=== PATIENT | male | born 1950 | race American Indian/Alaskan Native ===

== ENCOUNTER 2019-01-08 10:59 | Day surgery (SDC) | payer MEDICARE ==
--- NOTE | 2019-01-08 12:20 | Anesthesia Consultation ---
Anesthesia Consult and Med Hx Date of service: 01/08/19 - Airway Anesthetic Teeth Evaluation: Good ROM Head & Neck: Adequate Mental/Hyoid Distance: Adequate Mallampati Class: Class III Intubation Access Assessment: Possibly Difficult - Pulmonary Exam CTA: Yes - Cardiac Exam Cardiac Exam: RRR - Pre-Operative Health Status ASA Pre-Surgery Classification: ASA2 Proposed Anesthetic Plan: General - Pulmonary Hx Smoking: No Hx Respiratory Symptoms: No Hx Sleep Apnea: Yes (DX SLEEP APNEA- NO CPAP (HAD UPP SURGERY)) - Cardiovascular System Hx Hypertension: Yes (took amlodipine and losartan today) Hx Heart Attack/AMI: No - Central Nervous System CVA: No - Gastrointestinal Hx Gastroesophageal Reflux Disease: No - Endocrine Hx Renal Disease: No Hx Non-Insulin Dependent Diabetes: Yes (diet controlled) - Other Systems Hx Obesity: No - Additional Comments Anesthesia Medical History Comments: No hx anesthetic complications.
--- NOTE | 2019-01-08 12:21 | Anesthesia Day of Surgery ---
Anesthesia Day of Surgery - Day of Surgery Patient Examined: Yes Patient H&P Reviewed: Yes Patient is NPO: Yes
[2019-01-08] MEDS ORDERED: VERSED IV NR (13:00)
[2019-01-08] MEDS ORDERED: ANCEF/STERILE WATER 2 GM/20 ML IV NR (13:00)
[2019-01-08] MEDS ORDERED: LACTATED RINGERS 1,000 ML IV SCH (13:00)
[2019-01-08] MEDS ORDERED: SUBLIMAZE ONE ×2 (13:50→15:04)
[2019-01-08] MEDS ORDERED: DIPRIVAN 10 MG/ML IV ONE (13:51)
[2019-01-08] MEDS ORDERED: NACL 0.9% 1000 ML 1,000 ML ONE ×2 (14:35→15:22)
[2019-01-08] MEDS ORDERED: NACL 0.9% IR ONE (15:06)
[2019-01-08] MEDS ORDERED: WATER FOR IRRIG STERILE IR ONE (15:06)
[2019-01-08] MEDS ORDERED: ZOFRAN ONE (16:21)
[2019-01-08] MEDS ORDERED: LASIX ONE ×2 (16:21→18:07)
--- NOTE | 2019-01-08 16:44 | Post Operative Note ---
Date of procedure: 01/08/19 Pre-op diagnosis: cap Post-op diagnosis: same Findings: no evidence extension Procedure: cystp cryo Anesthesia: GETDarius Surgeon: RADHA HSIEH Estimated blood loss: minimal Pathology: none Condition: stable Disposition: PACU
--- NOTE | 2019-01-08 16:46 | Discharge Summary ---
Short Stay Discharge Plan Activity: other (no straining ) Weight Bearing Status: Full Weight Bearing Diet: low fat, low cholesterol, low salt Wound: other (ice in RR and x 24 hrs ) Special Instructions: other (ice butler) Durable Medical Equipment Needed Upon Discharge: other (teach butler care) Follow up with: JARAD MCNEIL MD [Primary Care Provider] - 7 Days RADHA HSIEH MD [Staff Physician] - 7 Days
[2019-01-08] MEDS: SUBLIMAZE IV PRN ×2 (17:02→18:10)
--- NOTE | 2019-01-08 17:39 | Operative Report ---
PREOPERATIVE DIAGNOSIS: Prostate cancer, extensive. POSTOPERATIVE DIAGNOSIS: Prostate cancer, extensive. PROCEDURE: Cryosurgical ablation of prostate, cystoscopy. SURGEON: Chadwick Castillo MD ANESTHESIA: General. FINDINGS: This is a gentleman with extensive prostate cancer. We offered him radical surgery, which he refused and radiation therapy, which he refused. He wanted cryosurgical ablation. He understands this may have to be repeated. He may need radiation at a later date. He has agreed to it. DESCRIPTION OF PROCEDURE: The patient brought to the operating room and placed on the operating table. Following induction of anesthesia, placed in lithotomy position, prepped and draped in usual sterile fashion. Griffin catheter was inserted. The scrotum was elevated and the ultrasound probe was placed. The gland once again measured about 26 grams. Excellent visualization was achieved. Probes 1 and 2 were placed. Then, ____ temperature probe and external sphincter were easily placed as well. Probes 5 and 6 and then 3 and 4 were placed, excellent position seen in both the transverse image and sagittal. Griffin catheter was in good position and at this point, flexible cystoscopy showed no injury to the urethra or bladder. A wire coiled in the bladder. This was an Amplatz stiff and the warmer easily went under ultrasound guidance into the bladder. This was secured with a Alvina. We rechecked the probe multiple times and made sure that the length was no more than 4 cm and adjusted it little shorter as we were more anterior to the gland. We then had the first freeze 1 and 2, started at about 50-75 and then came down to 3 and 4 and then 5 and 6. [place]illi[place] was protected. We watched the temperature and the ice ball formed well. The patient tolerated the procedure well. It was totally thawed. A second freeze was carried out. The second thaw was carried out. There was 1 probe area that was oozing, so we placed this one suture of 3-0 chromic. The patient tolerated the procedure well. No significant complications. The 18-coude was placed, brought to recovery room. Friend notified. His urine was clear and brought to recovery in stable condition. JOB# [id number] GLORY/SUMAYA
[2019-01-08 18:31] VITALS: BP 121/84
[2019-01-08] MEDS ORDERED: LASIX IV SCH (19:00)
== END 2019-01-08 11:00 | disposition home or self-care (01) ==
LOC: OR 10:59
PROVIDERS: ATTEND Urology
DX: C61 Malignant neoplasm of prostate (principal); E78.00 Pure hypercholesterolemia, unspecified; I10 Essential (primary) hypertension; G47.30 Sleep apnea, unspecified; M19.90 Unspecified osteoarthritis, unspecified site; E11.9 Type 2 diabetes mellitus without complications; Z79.899 Other long term (current) drug therapy
CPT/HCPCS: 55873; 82962; C2618; J0690; J1940; J2250; J2405; J2704; J3010; J7030; J7120

== ENCOUNTER 2019-01-15 21:30 | Emergency (ER) | payer MEDICARE ==
--- NOTE | 2019-01-15 22:25 | Emergency Department Report ---
Blank Doc - Documentation Documentation: This is a 68-year-old male that presents with unable to urinate. Stated has had a butler cath that was removed due to prostate cancer and now he can now void. This initial assessment/diagnostic orders/clinical plan/treatment(s) is/are subject to change based on patient's health status, clinical progression and re- assessment by fellow clinical providers in the ED. Further treatment and workup at subsequent clinical providers discretion. Patient/guardians urged not to ozzy pe from the ED as their condition may be serious if not clinically assessed and managed. Initial orders include: 1- Patient sent to MAIN ED for further evaluation and treatment 2- labs 3- butler ordered 4- UA
[2019-01-15 22:59] LABS: Basophils # (Auto) 0.1 K/mm3 (0.0-0.1); Basophils % (Auto) 0.9 % (0.0-1.8); Eosinophils # (Auto) 0.1 K/mm3 (0.0-0.4); Eosinophils % (Auto) 0.6 % (0.0-4.3); Hematocrit 40.3 % (35.5-45.6); Hemoglobin 13.4 gm/dl (11.8-15.2); Lymphocytes # (Auto) 2.1 K/mm3 (1.2-5.4); Lymphocytes % (Auto) 23.3 % (13.4-35.0); Mean Corpuscular HGB Conc 33 % (32-34); Mean Corpuscular Volume 87 fl (84-94); Monocytes # (Auto) 0.6 K/mm3 (0.0-0.8); Monocytes % (Auto) 6.5 % (0.0-7.3); Platelet Count 314 K/mm3 (140-440); Red Blood Count 4.63 M/mm3 (3.65-5.03); Red Cell Distribution Width 13.9 % (13.2-15.2)
[2019-01-15 23:09] VITALS: BP 140/83
[2019-01-15 23:12] LABS: BUN/Creatinine Ratio 15; Blood Urea Nitrogen 21 mg/dL (9-20); Calcium 10.1 mg/dL (8.4-10.2); Hemolysis Index 42
--- NOTE | 2019-01-15 23:20 | Emergency Department Report ---
HPI - General Chief Complaint: Abdominal Pain Time Seen by Provider: 01/15/19 22:23 - HPI HPI: 68-year-old -Spanish male presents to the emergency department with complaint of severe lower abdominal/suprapubic pain along with urinary retention. The patient has a history of prostate cancer and had some cryotherapy done one week ago with Dr. Castillo. He had a Griffin catheter in place secondary to this urinary retention but had it removed in the office this morning. The patient says that he was able to urinate on his own for a few hours but then once again became unable to urinate and the pain and retention got progressively worse. He denies any fever, nausea, vomiting. He did not take anything for her symptoms prior to arrival. ED Past Medical Hx - Past Medical History Previous Medical History?: Yes Hx Hypertension: Yes (took amlodipine and losartan today) Hx Heart Attack/AMI: No Hx Diabetes: Yes (" PRE-DIABETIC" -NO MEDS) Hx Renal Disease: No Hx of Cancer: Yes (Prostate) Hx Arthritis: Yes Hx HIV: No - Surgical History Past Surgical History?: No - Social History Smoking Status: Never Smoker Substance Use Type: None - Medications Home Medications: Home Medications Medication Instructions Recorded Confirmed Last Taken Type Atorvastatin Calcium 40 mg PO HS 01/08/19 01/08/19 01/07/19 21:55 History Losartan Potassium 100 mg PO DAILY 01/08/19 01/08/19 01/08/19 06:30 History amLODIPine [Norvasc] 10 mg PO DAILY 01/08/19 01/08/19 01/07/19 06:30 History ED Review of Systems ROS: Stated complaint: BLADDER PAIN Other details as noted in HPI Comment: All other systems reviewed and negative Constitutional: denies: chills, fever Eyes: denies: eye pain, vision change ENT: denies: ear pain, throat pain Respiratory: denies: cough, shortness of breath Cardiovascular: denies: chest pain, palpitations Gastrointestinal: abdominal pain. denies: vomiting Genitourinary: dysuria. denies: discharge Musculoskeletal: denies: back pain, arthralgia Skin: denies: rash, lesions Neurological: denies: headache, weakness Physical Exam - Physical Exam Vital Signs: Vital Signs 01/15/19 01/15/19 01/15/19 22:24 22:45 23:01 Temperature 98.3 F Pulse Rate 79 93 H 65 Respiratory 22 Rate Blood Pressure 155/83 Blood Pressure [Left] O2 Sat by Pulse 100 99 97 Oximetry 01/15/19 23:07 Temperature 98.3 F Pulse Rate 65 Respiratory 18 Rate Blood Pressure Blood Pressure 140/83 [Left] O2 Sat by Pulse 97 Oximetry Physical Exam: GENERAL: The patient is well-developed well-nourished. HEENT: Normocephalic. Atraumatic. Patient has moist mucous membranes. EYES: Extraocular motions are intact. NECK: Supple. Trachea is midline. CHEST/LUNGS: Clear to auscultation. There is no respiratory distress noted. HEART/CARDIOVASCULAR: Regular. There is no tachycardia. There is no obvious murmur. ABDOMEN: Abdomen is soft. Suprapubic tenderness to palpation. Patient has normal bowel sounds. SKIN: Skin is warm and dry. NEURO: The patient is awake, alert, and oriented. The patient is cooperative. The patient has no focal neurologic deficits. The patient has normal speech. MUSCULOSKELETAL: There is no tenderness or deformity. There is no evidence of acute injury. ED Course Vital Signs 01/15/19 01/15/19 01/15/19 22:24 22:45 23:01 Temperature 98.3 F Pulse Rate 79 93 H 65 Respiratory 22 Rate Blood Pressure 155/83 Blood Pressure [Left] O2 Sat by Pulse 100 99 97 Oximetry 01/15/19 23:07 Temperature 98.3 F Pulse Rate 65 Respiratory 18 Rate Blood Pressure Blood Pressure 140/83 [Left] O2 Sat by Pulse 97 Oximetry ED Medical Decision Making - Lab Data Result diagrams: 01/15/19 22:47 01/15/19 22:47 - Medical Decision Making The patient presents with significant lower abdominal and suprapubic pain with urinary retention. A Griffin catheter was placed and the patient began drained 800 mL of urine immediately. The patient immediately had significant decrease in his discomfort if not resolution. Labs were unremarkable. No renal insufficiency. There is some hematuria but no signs of any urinary tract infection. Vital signs stable, being afebrile. He has good follow-up with urology. He will return to the ER with any worsening of his symptoms or any acute distress. - Differential Diagnosis BPH, prostate cancer, UTI, bladder outlet obstruction Critical Care Time: No Critical care attestation.: If time is entered above; I have spent that time in minutes in the direct care of this critically ill patient, excluding procedure time. ED Disposition Clinical Impression: History of prostate cancer, Urinary retention Disposition: - TO HOME OR SELFCARE Is pt being admited?: No Condition: Stable Instructions: Urinary Retention in Men (ED), Griffin Catheter Placement and Care (ED), Urinary Leg Bag (GEN) Additional Instructions: Please follow-up with your urologist in the next few days. Return to the emergency Department with any worsening of your symptoms or with any acute distress. Referrals: RADHA CASTILLO MD [Staff Physician] - 2-3 Days Time of Disposition: 23:35
[2019-01-15 23:23] LABS: Bilirubin,Urine NEG (Negative); Blood,Urine LG (Negative); Color,Urine Yellow (Yellow); Mucus,Urine FEW /HPF; Protein,Urine <15 mg/dL mg/dL (Negative); Urobilinogen,Urine < 2.0 mg/dL (<2.0)
[2019-01-15 23:24] LABS: WBC,Urine < 1.0 /HPF (0.0-6.0)
== END 2019-01-16 00:25 | disposition home or self-care (01) ==
LOC: ED 21:30
DX: R33.9 Retention of urine, unspecified (principal); I10 Essential (primary) hypertension; E11.9 Type 2 diabetes mellitus without complications; M19.90 Unspecified osteoarthritis, unspecified site; Z80.42 Family history of malignant neoplasm of prostate
CPT/HCPCS: 36415; 51702; 80048; 81001; 85025